=== PATIENT | female | born 1975 | race Caucasian/White ===

== ENCOUNTER 2016-10-06 12:43 | Day surgery (SDC) | payer BC ==
[~2016-10-06] VITALS: Ht 149.9 cm; Wt 51.7 kg
[~2016-10-06 12:43] MED LIST: BIRTH CONTROL PILL; [UNRECOGNIZED DRUG - OTHER] PO
[2016-10-06] MEDS ORDERED: PROP10TA6 PO (14:30)
[2016-10-06] MEDS ORDERED: OMEP20CA16 PO (14:30)
[2016-10-06] MEDS ORDERED: SIMV20TA PO (14:30)
[2016-10-06] MEDS ORDERED: LEVO1TAB37 PO (14:30)
[2016-10-06] MEDS ORDERED: UDREG GTB (14:30)
[2016-10-06 14:32] VITALS: Ht 149.9 cm; Wt 51.7 kg
[2016-10-06 14:56] VITALS: BP 124/78; PULSE 76; RESP 16
[2016-10-06] MEDS ORDERED: PROPOFOL 40 ML ONE (15:41)
[2016-10-06] MEDS ORDERED: LIDOCAINE 2% (SDV) 5 ML INJ ONE (15:41)
[2016-10-06 16:52] VITALS: BP 125/75; PULSE 71; RESP 15
--- NOTE | 2016-10-06 17:47 | GILP ---
DATE OF PROCEDURE: PROCEDURE: Esophagogastroduodenoscopy with biopsies. BRIEF HISTORY AND INDICATIONS: The patient is being evaluated for dyspepsia despite treatment with PPIs and Reglan. PREMEDICATION: Monitored anesthesia care by anesthesiologist. SURGEON: Tung Us MD. PREOPERATIVE DIAGNOSIS: POSTOPERATIVE DIAGNOSIS: DESCRIPTION OF PROCEDURE: HISTORY AND INDICATIONS: PREMEDICATION: INSTRUMENT USED: TECHNIQUE: After informed consent, with the patient/relatives understanding the procedure, its indic ations, potential risks and complications, including but not limited to: allergic reaction, bleeding , perforation or infection, and after all pertinent questions were answered to the patients satisfac tion, the patient/relatives signed witnessed informed consent. Following this, premedication was administered slowly IV push under careful cardiovascular and respi ratory monitoring with pulse oximetry, automatic blood pressure and clinical research monitor. Once the sedative effect was achieved the patient was place in the left lateral decubitus, the panen doscope was introduced and advanced under visual control. Careful examination of the upper gastrointestinal tract, both on insertion as well as withdrawal of the instrument disclosed the following findings: ESOPHAGUS: The mucosa of the entire esophagus appears within normal limits. There is no evidence of esophagitis, varices, neoplasm or stricture. No hiatal hernia identified. STOMACH: Upon entrance to the stomach, air was insufflated, the gastric mack distended normally. T he mucosa of the fundus, body and antrum of the stomach was carefully examined. Shows erythema and edema of the mucosa of a moderate degree. Biopsies were obtained to rule out H. pylori infection. PYLORUS: The pylorus appears patent and within normal limits, with no evidence of gastric outlet obs truction. DUODENUM: The duodenal mucosa was carefully examined in the duodenal bulb as well as the second port ion of the duodenum and appears unremarkable with no evidence of duodenitis, ulcer or neoplasm. The instrument was then withdrawn, the patient tolerated the procedure well and was transfer out of the endoscopy suite awake, and in good condition to continue recovery under observation IMPRESSION: Moderate gastritis, rule out Helicobacter pylori infection. Biopsies were obtained. PLAN: The patient will be continued on PPIs and Reglan. Further recommendation will depend on her clinical course as well as review of biopsies. Dictated By: TUNG US MS/JAMIL Conf#: [id number] DID#: [id number]
== END 2016-10-06 16:14 | disposition home or self-care (01) ==
LOC: GIL 12:43
PROVIDERS: ATTEND Internal Medicine Gastroenterology
DX: K29.70 Gastritis, unspecified, without bleeding (principal)
CPT/HCPCS: 43239; 84703; 88305; 88312; Z7610